=== PATIENT | female | born 1965 | race Caucasian/White ===

== ENCOUNTER 2017-08-29 07:34 | Day surgery (SDC) | payer BC ==
[~2017-08-29 07:34] MED LIST: Dexamethasone 4 MG/ML SDV ONE; Lactated Ringers 1,000 ML ONE; Lidocaine 1% 4 ML ONE; Lidocaine 1%/Sod Bicarbonate in NS 8.4% 1 ML Syringe IV PRN; Midazolam 1 MG/ML 2 ML SDV ONE; Ondansetron 4 MG/2 ML SDV ONE; Propofol 200 MG/20 ML SDV ONE; Rocuronium 50 MG/5 ML Vial ONE; Sodium Chloride 0.9% 10 ML Syringe FLUSH PRN; ceFAZolin 1 GM Vial ONE; fentaNYL 250 MCG/5 ML SDV ONE
[2017-08-29] MEDS ORDERED: Bupivacaine 0.5% 30 ML SDV ONE (07:57)
[2017-08-29] MEDS: Lactated Ringers 1,000 ML IV SCH ×2 (08:00→11:47)
--- NOTE | 2017-08-29 08:48 | PCM.HPR ---
H & P Addendum review - H & P Addendum Review Date of Original H & P: 08/27/17 Date Reviewed: 08/29/17 Time Reviewed: 08:35 Patient was Examined: No Changes
--- NOTE | 2017-08-29 09:43 | PCM.PREANE ---
Preanesthetic Assessment - Anesthesia/Transfusion/Family Hx Anesthesia History: Prior Anesthesia Without Reaction Family History of Anesthesia Reaction: No Intubation History: Unknown - Review of Systems General: No Symptoms Pulmonary: No Symptoms (Currently smoking less than 1ppd.) Cardiovascular: No Symptoms Gastrointestinal: Abdominal Pain Neurological: No Symptoms Other: Reports: Depression - Physical Assessment NPO Status Date: 08/28/17 NPO Status Time: 20:00 O2 Sat by Pulse Oximetry: 96 Respiratory Rate: 16 Vital Signs: Last Vital Signs Temp 36.6 C 08/29/17 07:40 Pulse 83 08/29/17 07:40 Resp 16 08/29/17 07:40 BP 109/68 08/29/17 07:40 Pulse Ox 96 08/29/17 07:40 Height: 1.57 m Weight: 61.235 kg ASA Class: 2 Mental Status: Alert & Oriented x3 Airway Class: Mallampati = 1 Dentition: Reports: Dentures (Partial Dentures removed at home. ) Thyro-Mental Finger Breadths: 3 Mouth Opening Finger Breadths: 3 ROM/Head Extension: Full Lungs: Clear to Auscultation, Normal Respiratory Effort Cardiovascular: Regular Rate, Regular Rhythm - Lab Values: Laboratory Last Values WBC 7.99 K/mm3 (3.98-10.04) 08/29/17 08:15 RBC 4.39 M/mm3 (3.98-5.22) 08/29/17 08:15 Hgb 14.0 gm/L (11.2-15.7) 08/29/17 08:15 Hct 41.3 % (34.1-44.9) 08/29/17 08:15 MCV 94.1 fl (79.4-94.8) 08/29/17 08:15 MCH 31.9 pg (25.6-32.2) 08/29/17 08:15 MCHC 33.9 g/dl (32.2-35.5) 08/29/17 08:15 RDW Std Deviation 44.5 fL (36.4-46.3) 08/29/17 08:15 Plt Count 309 K/mm3 (182-369) 08/29/17 08:15 MPV 10.0 fl (9.4-12.3) 08/29/17 08:15 Neut % (Auto) 57.9 % (34.0-71.1) 08/29/17 08:15 Lymph % (Auto) 29.3 % (19.3-51.7) 08/29/17 08:15 Stokes % (Auto) 7.6 % (4.7-12.5) 08/29/17 08:15 Eos % (Auto) 4.6 (0.7-5.8) 08/29/17 08:15 Baso % (Auto) 0.5 % (0.1-1.2) 08/29/17 08:15 Neut # (Auto) 4.62 K/mm3 (1.56-6.13) 08/29/17 08:15 Lymph # (Auto) 2.34 K/mm3 (1.18-3.74) 08/29/17 08:15 Stokes # (Auto) 0.61 K/mm3 (0.24-0.36) H 08/29/17 08:15 Eos # (Auto) 0.37 K/mm3 (0.04-0.36) H 08/29/17 08:15 Baso # (Auto) 0.04 K/mm3 (0.01-0.08) 08/29/17 08:15 Sodium 141 mEq/L (136-145) 08/29/17 08:29 Potassium 4.1 mEq/L (3.5-5.1) 08/29/17 08:29 Chloride 108 mEq/L (98-107) H 08/29/17 08:29 Carbon Dioxide 26 mEq/L (21-32) 08/29/17 08:29 Anion Gap 11.1 (5-15) 08/29/17 08:29 BUN 10 mg/dL (7-18) 08/29/17 08:29 Creatinine 0.8 mg/dL (0.55-1.02) 08/29/17 08:29 Est Cr Clr Drug Dosing 63.58 mL/min 08/29/17 08:29 Estimated GFR (MDRD) > 60 mL/min (>60) 08/29/17 08:29 BUN/Creatinine Ratio 12.5 (14-18) L 08/29/17 08:29 Glucose 93 mg/dL (74-106) 08/29/17 08:29 Calcium 8.4 mg/dL (8.5-10.1) L 08/29/17 08:29 Urine Color Yellow (Yellow) 08/29/17 07:54 Urine Appearance Clear (Clear) 08/29/17 07:54 Urine pH 6.5 (5.0-8.0) 08/29/17 07:54 Ur Specific [place] 1.020 (1.005-1.030) 08/29/17 07:54 Urine Protein Negative (Negative) 08/29/17 07:54 Urine Glucose (UA) Negative (Negative) 08/29/17 07:54 Urine Ketones Negative (Negative) 08/29/17 07:54 Urine Occult Blood Negative (Negative) 08/29/17 07:54 Urine Nitrite Negative (Negative) 08/29/17 07:54 Urine Bilirubin Negative (Negative) 08/29/17 07:54 Urine Urobilinogen 0.2 (0.2-1.0) 08/29/17 07:54 Ur Leukocyte Esterase Negative (Negative) 08/29/17 07:54 Urine RBC 0-5 /hpf (0-5) 08/29/17 07:54 Urine WBC Not seen /hpf (0-5) 08/29/17 07:54 Ur Epithelial Cells 0-5 /hpf (0-5) 08/29/17 07:54 Urine Bacteria Rare /hpf (FEW) 08/29/17 07:54 Urine Mucus Not seen /hpf (FEW) 08/29/17 07:54 Blood Type O POSITIVE 08/29/17 08:15 Gel Antibody Screen Negative 08/29/17 08:15 - Imaging/EKG Impressions: Reviewed. - Allergies Allergies/Adverse Reactions: Allergies Allergy/AdvReac Type Severity Reaction Status Date / Time No Known Allergies Allergy Verified 08/29/17 08:30 - Acknowledgements Anesthesia Type Planned: General Anesthesia Pt an Appropriate Candidate for the Planned Anesthesia: Yes Alternatives and Risks of Anesthesia Discussed w Pt/Guardian: Yes Pt/Guardian Understands and Agrees with Anesthesia Plan: Yes PreAnesthesia Questionnaire HEENT History: Reports: None Cardiovascular History: Reports: None Respiratory History: Reports: None Gastrointestinal History: Reports: Chronic Constipation Genitourinary History: Reports: Other (See Below) Other Genitourinary History: enterocele, rectocele, pelvic pressure STATISTICS MANAGER History: Reports: Other (See Below) Other OB/BYN History: dyspareunia, A&P repair, vaginal prolapse, bladder sling placed and removed Musculoskeletal History: Reports: None Neurological History: Reports: None Psychiatric History: Reports: Depression Endocrine/Metabolic History: Reports: None Hematologic History: Reports: None Immunologic History: Reports: None Oncologic (Cancer) History: Reports: None Dermatologic History: Reports: None - Past Surgical History Head Surgeries/Procedures: Reports: None HEENT Surgical History: Reports: None Cardiovascular Surgical History: Reports: None Respiratory Surgical History: Reports: None GI Surgical History: Reports: Colonoscopy, Hernia, Inguinal Female Surgical History: Reports: D&C, Hysterectomy Male Surgical History: Reports: None Endocrine Surgical History: Reports: None Neurological Surgical History: Reports: None Musculoskeletal Surgical History: Reports: None Oncologic Surgical History: Reports: None Dermatological Surgical History: Reports: None - SUBSTANCE USE Smoking Status *Q: Current Some Day Smoker Recreational Drug Use History: No - HOME MEDS Home Medications: Home Meds Escitalopram Oxalate [Escitalopram Oxalate] 10 mg PO DAILY 08/27/17 [History] Gabapentin [Neurontin] 200 mg PO BID 08/27/17 [History] LORazepam [LORazepam] 0.5 mg PO DAILY 08/27/17 [History] - CURRENT (IN HOUSE) MEDS Current Meds: Current Medications Lactated Ringer's (Ringers, Lactated) 1,000 mls @ 125 mls/hr IV ASDIRECTED JARRED Last Admin: 08/29/17 08:00 Dose: 125 mls/hr Lidocaine/Sodium Bicarbonate (Buffered Lidocaine 1% In Ns 8.4%) 0.25 ml IV ONETIME PRN PRN Reason: Prior to IV Start Last Admin: 08/29/17 08:00 Dose: 0.25 ml Sodium Chloride (Saline Flush) 10 ml FLUSH ASDIRECTED PRN PRN Reason: Keep Vein Open Discontinued Medications Bupivacaine HCl (Marcaine 0.5%) Confirm Administered Dose 30 ml .ROUTE .STK-MED ONE Stop: 08/29/17 07:58 Cefazolin Sodium (Ancef) Confirm Administered Dose 2 gm .ROUTE .STK-MED ONE Stop: 08/29/17 07:07 Dexamethasone (Dexamethasone) Confirm Administered Dose 4 mg .ROUTE .STK-MED ONE Stop: 08/29/17 07:07 Fentanyl (Sublimaze) Confirm Administered Dose 250 mcg .ROUTE .STK-MED ONE Stop: 08/29/17 07:08 Lactated Ringer's (Ringers, Lactated) Confirm Administered Dose 1,000 mls @ as directed .ROUTE .ST-MED ONE Stop: 08/29/17 07:07 Lidocaine HCl (Xylocaine-Mpf 1%) Confirm Administered Dose 4 mls @ as directed .ROUTE .ST-MED ONE Stop: 08/29/17 07:08 Lidocaine/Epinephrine (Xylocaine 1% With Epinephrine 1:100,000) Confirm Administered Dose 20 ml .ROUTE .ST-MED ONE Stop: 08/29/17 07:58 Midazolam HCl (Versed 1 Mg/Ml) Confirm Administered Dose 2 mg .ROUTE .ST-MED ONE Stop: 08/29/17 07:08 Ondansetron HCl (Zofran) Confirm Administered Dose 4 mg .ROUTE .ST-MED ONE Stop: 08/29/17 07:07 Propofol (Diprivan 20 Ml) Confirm Administered Dose 400 mg .ROUTE .ST-MED ONE Stop: 08/29/17 07:07 Rocuronium [place] (Zemuron) Confirm Administered Dose 50 mg .ROUTE .ST-MED ONE Stop: 08/29/17 07:07 Sodium Chloride (Normal Saline) Confirm Administered Dose 50 ml .ROUTE .[facility]-MED ONE Stop: 08/29/17 07:58
[2017-08-29] MEDS ORDERED: Haloperidol Lactate 5 MG/ML SDV IVPUSH ONE (09:44)
[2017-08-29] MEDS ORDERED: HYDROmorphone 0.5 MG/0.5 ML Syringe IVPUSH PRN (09:44)
[2017-08-29] MEDS ORDERED: Lidocaine 1%/Sod Bicarbonate in NS 8.4% 1 ML Syringe PRN (09:53)
[2017-08-29] MEDS ORDERED: ePHEDrine 50 MG/ML SDV ONE (09:55)
[2017-08-29] MEDS ORDERED: Ketorolac 30 MG/ML SDV ONE (09:56)
[2017-08-29] MEDS: Lidocaine 1% with EPINEPHrine 1:100,000 20 ML MDV ONE ×2 (10:01→10:15)
[2017-08-29] MEDS: Sodium Chloride 0.9% 50 ML SDV ONE ×2 (10:02→10:15)
[2017-08-29] MEDS ORDERED: HYDROmorphone 1 MG/ML Syringe ONE (10:31)
[2017-08-29] MEDS ORDERED: Neostigmine Methylsulfate 1 MG/ML 5 ML Syringe ONE (11:00)
--- NOTE | 2017-08-29 11:13 | PCM.POSTAN ---
POST ANESTHESIA ASSESSMENT - MENTAL STATUS Mental Status: Alert, Oriented - VITAL SIGNS Pulse Rate: 87 SaO2: 100 Resp Rate: 9 Blood Pressure: 112/68 Temperature: 36.6 C - RESPIRATORY Respiratory Status: Respiratory Rate WNL, Airway Patent, O2 Saturation Stable, Supplemental Oxygen - CARDIOVASCULAR CV Status: Pulse Rate WNL, Blood Pressure Stable - GASTROINTESTINAL GI Status: No Symptoms - PAIN Pain Score: 0 - POST OP HYDRATION Hydration Status: Adequate & Stable
[2017-08-29] MEDS: fentaNYL 100 MCG/2 ML SDV IVPUSH PRN ×2 (11:16→11:33)
--- NOTE | 2017-08-29 11:21 | PCM.OPNOTE ---
- General Post-Op/Procedure Note Date of Surgery/Procedure: 08/29/17 Operative Procedure(s): Laparoscopy with lysis of adhesions and right salpingo- oophorectomy, anterior and posterior repair Findings: Normal appearing liver and upper abdomen, lower pelvis with adhesions of omentum to anterior pelvis wall, remnant of ovary and adnexal structures at pelvic brim on the right side, right fallopian tube and ovary present at the pelvic inlet, otherwise normal-appearing pelvis Pre Op Diagnosis: Cystocele with rectocele, dyspareunia in female, change in bowel movements, acute constipation, pelvic pain in female Post-Op Diagnosis: Same Anesthesia Technique: General ET Tube Primary Surgeon: Darwin Will Secondary Surgeon: Kaushal Hartley Anesthesia Provider: Suki Gonzalez Reason Mgmt Consultant Was Necessary: Laparoscopy trained orthotics assistant and patient safety Role of Mgmt Consultant: Mgmt Consultant with laparoscopy and components, assist with vaginal surgery Pathology: Right pelvic brim peritoneum, right fallopian tube and ovary Fluid Replacement, Intraop: 1,800 Output, Urine Amount: 400 EBL in mLs: 100 Complications: None Condition: Good Free Text/Narrative:: Procedure in detail: Patient was seen in the preoperative holding area and discussed plans for surgery. Consents were reviewed and patient desires to proceed with diagnostic laparoscopy, lysis of adhesions, anterior and posterior repair of the vagina. The patient was taken back to the operating room and given general anesthesia with endotracheal tube that was placed without difficulty. She was placed in dorsal lithotomy position using yellowfin stirrups. She was prepped and draped in normal sterile fashion. A timeout was held to confirm the correct patient, correct procedure and correct site. Attention was turned to the patient's abdomen and local anesthetic of 1% lidocaine was injected infraumbilically. A 5-mm incision was made with the scalpel. A Veress needle was inserted through the infraumbilical incision. The gas was turned on. The opening pressure was noted to be 8 mmHg. A pneumoperitoneum was made until 15 mmHg were noted. A 5-mm trocar was inserted under direct visualization of the laparoscope. Attention was turned to the left lower quadrant, where local anesthetic was injected approximately senior living between the ASIS and the umbilicus. A 5-mm incision was made with the scalpel. A 5-mm trocar was inserted under direct visualization with the laparoscope. The suprapubic area was then injected with local anesthetic approximately 2 cm above the pubic symphysis in the midline and a scalpel was used to make a 5 mm incision. A 5-mm trocar was inserted under direct visualization. The pelvis was then inspected and there was noted to be adhesions of the omentum and bowel to the anterior pelvis. There was noted to be ovarian remnants on the right side of the pelvis at the pelvic brim and ovary with remnant fallopian tube at the right pelvic inlet. Attention was then turned to the right lower quadrant and local anesthetic was injected subcutaneously approximately senior living between the right side ASIS and the umbilicus, and a 5-mm incision was made using the scalpel. A 5-mm trocar was inserted under direct visualization with the laparoscope. Attention was then turned to the pelvis, where the ovarian remnant tissue that was previously seen at the right pelvic brim was excised using a Harmonic scalpel. This was sent for pathology. The right ovary and fallopian tube was then grasped and excised using the Harmonic scalpel. Hemostasis was present from the surgical bed. The suprapubic port was extended to a 10 mm incision and a 10 mm trocar was inserted into the abdomen under direct visualization. An Endocatch bag was inserted into the pelvis and was used to remove the right ovary and fallopian tube. In the low pelvis there was noted to be some adhesions of the omentum and bowel to the anterior pelvis. A portion of the adhesions that was distant from the bowel mucosa were taken down using the Harmonic scalpel. The bowel had a significant amount of adhesions along the left side of the pelvis and abdominal sidewall. Attempts were made to try to visualize the left ovary but unable to be seen due to these adhesions. The laparoscopic portion of the case was complete at this time. The gas was removed from the abdomen. The suprapubic port fascia was closed using running suture of 0-Vicryl on a UR-6 needle. The skin incision was closed with 3-0 Monocryl in a running fashion in the suprapubic port. Dermabond skin glue was used over the port sites to close the remaining ports and to cover the skin incision of the suprapubic port. Attention was then turned to the pelvis for the anterior and posterior repair. There was noted to be a grade 2 cystocele and rectocele. The vaginal mucosa overlying the bladder was grasped using Allis clamps and was injected using 1% lidocaine with epinephrine. The mucosa was then excised in a triangular fashion using a scalpel and Metzenbaum scissors. On the lateral sides of the bladder the mucosa was undermined using Metzenbaum scissors. The vesicovaginal fascia was then reapproximated using 0-Monocryl suture with box sutures. The edges of the vaginal mucosa was trimmed further using Metzenbaum sutures. The incision was closed using 3-0 Monocryl sutures in a running locked fashion. The rectal vaginal mucosa was then grasped using Allis clamps and injected with 1% lidocaine with epinephrine and this was excised using a scalpel and Metzenbaum scissors. The mucosa was dissected off of the underlying rectum and the rectovaginal fascia was reapproximated using box sutures of 0-Monocryl suture. The incision was then closed using 3-0 Monocryl suture in a running locked fasihion to the hymenal ring and then the remaining portion was closed in running fashion. Vaginal exam had good support of the bladder and rectum. The procedure was complete at this time. The patient tolerated the procedure well. She was taken back to the PACU, where she was observed for appropriate pain control, a voiding trial and ambulation trial. She was given strict postoperative precautions and will follow up in 2 weeks or sooner if there are any problems that arise.
[2017-08-29] MEDS ORDERED: diphenhydrAMINE 50 MG/ML SDV ONE (11:47)
[2017-08-29] MEDS ORDERED: diphenhydrAMINE 50 MG/ML SDV IVPUSH PRN (11:51)
[2017-08-29] MEDS ORDERED: traMADol 50 MG Tab PO SCH (12:45)
[2017-08-29] MEDS ORDERED: Acetaminophen/oxyCODONE 325-5 MG Tab PO ONE (12:55)
--- NOTE | 2017-08-29 15:08 | PCM48HPAN ---
Post Anesthesia Note - EVALUATION WITHIN 48HRS OF ANESTHETIC Vital Signs in Normal Range: Yes Patient Participated in Evaluation: Yes Respiratory Function Stable: Yes Airway Patent: Yes Cardiovascular Function Stable: Yes Hydration Status Stable: Yes Pain Control Satisfactory: Yes Nausea and Vomiting Control Satisfactory: Yes Mental Status Recovered: Yes
== END 2017-08-29 13:55 | disposition home or self-care (01) ==
LOC: JD.SDS 07:34
PROVIDERS: ATTEND Obstetrics & Gynecology
DX: N83.331 Acquired atrophy of right ovary and fallopian tube (principal); N81.10 Cystocele, unspecified; N81.6 Rectocele; F32.9 Major depressive disorder, single episode, unspecified; Z79.899 Other long term (current) drug therapy; Z98.890 Other specified postprocedural states; Z87.891 Personal history of nicotine dependence
CPT/HCPCS: 36415; 57260; 58661; 80048; 81001; 85025; 86850; 86900; 86901; 87086; 93005; A9270; J0690; J1100; J1170; J1200; J1885; J2250; J2405; J2710; J3010; J7120; 00840; J2704

== ENCOUNTER 2018-07-10 10:02 | Emergency (ER) | payer BC ==
[2018-07-10] MEDS ORDERED: Ondansetron 4 MG/2 ML SDV IVPUSH ONE (11:02)
[2018-07-10] MEDS ORDERED: HYDROmorphone 0.5 MG/0.5 ML SYRINGE IVPUSH STA (11:04)
[2018-07-10] MEDS ORDERED: Sodium Chloride 0.9% 10 ML Syringe FLUSH PRN (11:12)
[2018-07-10] MEDS ORDERED: Diatrizoate Meglumine/Diatrizoate Sodium 37% 120 ML Bottle PO ONE (11:12)
[2018-07-10] MEDS ORDERED: Iopamidol 612 MG/ML 100 ML Bottle IVPUSH ONE (11:12)
[2018-07-10] MEDS ORDERED: Sodium Chloride 0.9% 1,000 ML IV SCH (11:15)
[2018-07-10] MEDS ORDERED: Sulfamethoxazole/Trimethoprim 800-160 MG Tab PO ONE (11:47)
--- NOTE | 2018-07-10 11:48 | EDM.PDOC ---
ED HPI GENERAL MEDICAL PROBLEM - General Chief Complaint: Abdominal Pain Stated Complaint: LOWER ABDOMINAL PAIN Time Seen by Provider: 07/10/18 10:42 Source of Information: Reports: Patient, RN Notes Reviewed History Limitations: Reports: No Limitations - History of Present Illness INITIAL COMMENTS - FREE TEXT/NARRATIVE: The patient states that she developed nausea and vomiting this past 07/08/2018. Shortly afterwards, she developed right sided abdominal pain. Is sharp and burning in character. It does not radiate. It comes and goes, and the patient has not identified any modifiers. She denies having any diarrhea or urinary symptoms. No recent fever. No prior similar symptoms. The patient denies eating a bad or spoiled food within the last week. Not of her close contacts are similarly ill. No recent antibiotics. No recent travel. The patient's PCP is Dr. Rhea Kinney. 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: Reports: Other (See Below) Musculoskeletal History: Reports: Other (See Below) (Lumbar disc disease) Psychiatric History: Reports: Depression - Past Surgical History HEENT Surgical History: Reports: Oral Surgery (wisdom teeth extraction) GI Surgical History: Reports: Colonoscopy, EGD, Hernia, Inguinal (right, with revision) Female Surgical History: Reports: D&C, Hysterectomy, Lithotripsy/ESWL, Oophorectomy (bilateral), Ureteral Stent, Other (See Below) (Rectocele, cystocele, bladder sling) Social & Family History - Tobacco Use Smoking Status *Q: Former Smoker Years of Tobacco use: 37 Packs/Tins Daily: 0.4 Month/Year Tobacco Last Used: Quit 2016 - Caffeine Use Caffeine Use: Reports: Coffee - Alcohol Use Alcohol Use History: Yes Alcohol Use Frequency: Rarely - Recreational Drug Use Recreational Drug Use: No - Living Situation & Occupation Living situation: Reports: , with Spouse 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 ED EXAM, GI/ABD - Physical Exam Exam: See Below Exam Limited By: No Limitations General Appearance: Alert, WD/WN, No Apparent Distress Eyes: Bilateral: Normal Appearance, EOMI Ears: Normal External Exam, Hearing Grossly Normal Nose: Normal Inspection Throat/Mouth: Normal Inspection, Normal Lips, Normal Voice, No Airway Compromise Head: Atraumatic, Normocephalic Neck: Normal Inspection, Full Range of Motion Respiratory/Chest: No Respiratory Distress, Lungs Clear, Normal Breath Sounds, No Accessory Muscle Use Cardiovascular: Normal Peripheral Pulses, Regular Rate, Rhythm, No Edema, No Gallop, No JVD, No Murmur, No Rub GI/Abdominal Exam: Normal Bowel Sounds, Soft, No Organomegaly, No Distention, No Abnormal Bruit, No Mass, Tender (Entire right abdomen, particularly the mid- right abdomen. Nontender to the left abdomen, and Rovsing sign negative.). No: Rebound (Female) Exam: Deferred Rectal (Female) Exam: Deferred Back Exam: Normal Inspection, Full Range of Motion. No: CVA Tenderness (L), CVA Tenderness (R) Extremities: Normal Inspection, Normal Range of Motion, No Pedal Edema, Normal Capillary Refill Neurological: Alert, Oriented, Normal Cognition, No Motor/Sensory Deficits Psychiatric: Normal Affect Skin Exam: Warm, Dry, Intact, Normal Color, No Rash Course - Vital Signs Last Recorded V/S: Last Vital Signs Temp 37.0 C 07/10/18 10:19 Pulse 98 07/10/18 10:19 Resp 19 07/10/18 10:19 BP 120/89 07/10/18 10:19 Pulse Ox 98 07/10/18 10:19 - Orders/Labs/Meds Orders: Active Orders 24 hr Category Date Time Status CULTURE URINE [RM] Stat Lab 07/10/18 10:30 Received Sodium Chloride 0.9% [Normal Saline] 1,000 ml Med 07/10/18 11:15 Active IV ASDIRECTED Sodium Chloride 0.9% [Saline Flush] Med 07/10/18 11:12 Active 10 ml FLUSH ONETIME PRN Medication Orders Sodium Chloride (Normal Saline) 1,000 mls @ 150 mls/hr IV ASDIRECTED JARRED Last Admin: 07/10/18 11:17 Dose: 150 mls/hr Sodium Chloride (Saline Flush) 10 ml FLUSH ONETIME PRN PRN Reason: IV FLUSH Last Admin: 07/10/18 11:51 Dose: 10 ml Labs: Laboratory Tests 07/10/18 07/10/18 07/10/18 Range/Units 10:30 11:20 11:20 WBC 10.65 H (3.98-10.04) K/mm3 RBC 4.32 (3.98-5.22) M/mm3 Hgb 13.7 (11.2-15.7) gm/L Hct 41.4 (34.1-44.9) % MCV 95.8 H (79.4-94.8) fl MCH 31.7 (25.6-32.2) pg MCHC 33.1 (32.2-35.5) g/dl RDW Std Deviation 44.1 (36.4-46.3) fL Plt Count 329 (182-369) K/mm3 MPV 10.3 (9.4-12.3) fl Neutrophils % (Manual) 71 H (40-60) % Band Neutrophils % 0 (0-10) % Lymphocytes % (Manual) 22 (20-40) % Atypical Lymphs % 0 % Monocytes % (Manual) 3 (2-10) % Eosinophils % (Manual) 4 (0.7-5.8) % Basophils % (Manual) 0 L (0.1-1.2) Platelet Estimate Adequate RBC Morph Comment Normal Sodium 139 (136-145) mEq/L Potassium 3.8 (3.5-5.1) mEq/L Chloride 104 (98-107) mEq/L Carbon Dioxide 26 (21-32) mEq/L Anion Gap 12.8 (5-15) BUN 7 (7-18) mg/dL Creatinine 0.8 (0.55-1.02) mg/dL Est Cr Clr Drug Dosing 63.58 mL/min Estimated GFR (MDRD) > 60 (>60) mL/min BUN/Creatinine Ratio 8.8 L (14-18) Glucose 93 (74-106) mg/dL Calcium 8.9 (8.5-10.1) mg/dL Total Bilirubin 0.2 (0.2-1.0) mg/dL AST 16 (15-37) U/L ALT 18 (14-59) U/L Alkaline Phosphatase 76 (46-116) U/L Total Protein 7.3 (6.4-8.2) g/dl Albumin 3.7 (3.4-5.0) g/dl Globulin 3.6 gm/dL Albumin/Globulin Ratio 1.0 (1-2) Lipase 152 (73-393) U/L Urine Color Yellow (Yellow) Urine Appearance Clear (Clear) Urine pH 7.0 (5.0-8.0) Ur Specific Hanna 1.015 (1.005-1.030) Urine Protein Negative (Negative) Urine Glucose (UA) Negative (Negative) Urine Ketones Negative (Negative) Urine Occult Blood Negative (Negative) Urine Nitrite Negative (Negative) Urine Bilirubin Negative (Negative) Urine Urobilinogen 0.2 (0.2-1.0) Ur Leukocyte Esterase 1+ H (Negative) Urine RBC 0-5 (0-5) /hpf Urine WBC 5-10 H (0-5) /hpf Ur Epithelial Cells 0-5 (0-5) /hpf Urine Bacteria Many H (FEW) /hpf Urine Mucus Not seen (FEW) /hpf Meds: Medications Generic Name Dose Route Start Last Admin Trade Name Cole PRN Reason Stop Dose Admin Sodium Chloride 1,000 mls @ 150 mls/hr 07/10/18 11:15 07/10/18 11:17 Normal Saline IV 150 mls/hr ASDIRECTED JARRED Administration Sodium Chloride 10 ml 07/10/18 11:12 07/10/18 11:51 Saline Flush FLUSH 10 ml ONETIME PRN Administration IV FLUSH Discontinued Medications Generic Name Dose Route Start Last Admin Trade Name Freq PRN Reason Stop Dose Admin Diatrizoate Meglum/Diatrizoate Sod 120 ml 07/10/18 11:12 07/10/18 11:51 Gastrografin 37% PO 07/10/18 11:13 90 ml ONETIME ONE Administration Hydromorphone HCl 1 mg 07/10/18 11:04 07/10/18 11:18 Dilaudid IVPUSH 07/10/18 11:05 1 mg ONETIME STA Administration Iopamidol 100 ml 07/10/18 11:12 07/10/18 11:50 Isovue-300 (61%) IVPUSH 07/10/18 11:13 100 ml ONETIME ONE Administration Ondansetron HCl 4 mg 07/10/18 11:02 07/10/18 11:18 Zofran IVPUSH 07/10/18 11:03 4 mg ONETIME ONE Administration Trimethoprim/Sulfamethoxazole 1 tab 07/10/18 11:47 Septra Ds PO 07/10/18 11:48 ONETIME ONE - Re-Assessments/Exams Free Text/Narrative Re-Assessment/Exam: 07/10/18 11:47 The patient's urinalysis is remarkable for 1+ leukocyte esterase, 5-10 WBCs, and many bacteria. This is consistent with a UTI. A urine culture has been ordered, and I will start the patient on oral Bactrim. 07/10/18 12:41 CT of the abdomen and pelvis with oral and IV contrast is read by Dr. Boss as: 1. Small hiatal hernia with mild gastroesophageal reflux. 2. Other incidental findings. Nothing acute is seen. 07/10/18 13:10 Test results discussed with the patient. Other than the possible urinary tract infection, for which the patient is are been started on Bactrim, the remainder of her workup was unremarkable, and does not explain her right-sided pain. I will prescribe 3 day course of Bactrim, and I would like the patient to follow- up with her PCP, Dr. Kinney, this coming week. If her symptoms worsen, I would like her to return to the ED for reevaluation. Departure - Departure Time of Disposition: 13:10 Disposition: Home, Self-Care 01 Condition: Good Clinical Impression: Abdominal pain of unknown etiology, UTI (urinary tract infection) - Discharge Information *PRESCRIPTION DRUG MONITORING PROGRAM REVIEWED*: Not Applicable *COPY OF PRESCRIPTION DRUG MONITORING REPORT IN PATIENT LYNDSAY: Not Applicable Referrals: Rhea Kinney MD [Primary Care Provider] - Forms: ED Department Discharge, ED Return to Work/School Form Additional Instructions: You were seen in the emergency room for right-sided abdominal pain, along with nausea and vomiting. Workup in the ER included blood work, a urinalysis, and a CT scan of your abdomen and pelvis with oral and IV contrast. Your urinalysis indicates that you might have a urinary tract infection. A sample of your urine has been sent for culture. You have been started on the antibiotic Bactrim. A prescription for Bactrim has been sent to the [facility], [address]. Take one tablet every 12 hours, starting this evening, 07/10/2018, as prescribed. Finish the entire prescription unless told otherwise by a doctor. Stay adequately hydrated, so that you urinate fairly often. It does not really matter what fluid you drink. The remainder of your workup was unremarkable, and does not explain your right- sided abdominal pain and tenderness. We recommend that you follow-up with your PCP, Dr. Rhea Kinney, early this coming week, however, if your symptoms worsen, we recommend that you return to the ER for reevaluation. - My Orders Last 24 Hours: My Active Orders 07/10/18 10:30 CULTURE URINE [RM] Stat 07/10/18 11:12 Sodium Chloride 0.9% [Saline Flush] 10 ml FLUSH ONETIME PRN 07/10/18 11:15 Sodium Chloride 0.9% [Normal Saline] 1,000 ml IV ASDIRECTED - Assessment/Plan Last 24 Hours: My Active Orders 07/10/18 10:30 CULTURE URINE [RM] Stat 07/10/18 11:12 Sodium Chloride 0.9% [Saline Flush] 10 ml FLUSH ONETIME PRN 07/10/18 11:15 Sodium Chloride 0.9% [Normal Saline] 1,000 ml IV ASDIRECTED
--- NOTE | 2018-07-10 12:22 | CT ---
CT abdomen and pelvis Technique: Multiple axial sections were obtained from above the dome of the diaphragm inferiorly through the pubic symphysis. Intravenous and oral contrast is present. Oral contrast remains within the stomach. Delayed images were obtained through the bladder. Comparison: No prior abdominal CT study. Findings: Visualized lung bases show nothing acute. Small hiatal hernia is seen. Mild gastroesophageal reflux is seen into the esophagus. Liver shows no focal parenchymal abnormality. Spleen appears within normal limits. Adrenal glands show no nodule. Pancreas appears within normal limits. Aorta shows no aneurysm. No retroperitoneal adenopathy is seen. Appendix is seen which is normal in size. No pelvic mass or adenopathy is seen. No free fluid or inflammatory change is seen. No bowel dilatation is seen. Gallbladder shows no calcified gallstones. Bone window settings were reviewed which shows severe disc space narrowing at L5-S1 with vacuum phenomena with posterior disc bulging and posterior spurring. Lesser degenerative change is seen within the thoracic spine. Impression: 1. Small hiatal hernia with mild gastroesophageal reflux. 2. Other incidental findings. Nothing acute is seen. Diagnostic code #2
== END 2018-07-10 13:34 | disposition home or self-care (01) ==
LOC: JD.ED 10:02
DX: N39.0 Urinary tract infection, site not specified (principal); Z79.899 Other long term (current) drug therapy; Z87.891 Personal history of nicotine dependence
CPT/HCPCS: 36415; 74177; 80053; 81001; 83690; 85007; 85027; 87086; 87088; 87184; 96361; 96374; 96375; 99284; A9270; J1170; J2405; J7040; J7050; Q9963; Q9967

== ENCOUNTER 2020-06-02 09:55 | Emergency (ER) | payer BC ==
[2020-06-02] MEDS ORDERED: Dexamethasone 10 MG/ML SDV IM ONE (11:10)
--- NOTE | 2020-06-02 11:17 | EDM.PDOC ---
ED HPI GENERAL MEDICAL PROBLEM - General Chief Complaint: Back Pain or Injury Stated Complaint: BACK PAIN Time Seen by Provider: 06/02/20 10:57 Source of Information: Reports: Patient, RN Notes Reviewed History Limitations: Reports: No Limitations - History of Present Illness INITIAL COMMENTS - FREE TEXT/NARRATIVE: Patient is a 54-year-old female who presents to the ED for evaluation of her ongoing back pain. Patient notes she has degenerative disc disease in her back, and she cannot remember any specific trauma or movements that she had made to make the back pain worse. She does note that this is been going on for about 4 days. She was seen in the walk-in clinic on Friday, May 31, given an injection of Toradol, some p.o. prednisone 40 mg daily x5 days-, and Flexeril for management, she also had an x-ray taken. The providers are told that she needed an MRI and she should follow-up with her regular provider Paulette Luis for this. Patient notes she has been trying to get a hold of Paulette, but she is been out of the office and not taking appointments at this time. She notes that the pain is still radiating down her right leg, and feels like there is [id number]. She states is very difficult to get out of bed this morning due to the pain. Otherwise she denies any sick-like symptoms, fever/chills, cough/shortness of breath, or any other issues. - Related Data Allergies Allergy/AdvReac Type Severity Reaction Status Date / Time tramadol Allergy Severe Difficulty Verified 06/02/20 10:14 Breathing Home Meds: Home Meds Cyclobenzaprine [Flexeril] 5 mg PO DAILY PRN 06/02/20 [History] LORazepam [Ativan] 0.5 mg PO DAILY PRN 06/02/20 [History] Rosuvastatin Calcium [Crestor] 40 mg PO DAILY 06/02/20 [History] predniSONE [Prednisone] 40 mg PO ASDIRECTED 06/02/20 [History] Past Medical History Cardiovascular History: Reports: High Cholesterol Gastrointestinal History: Reports: PUD Genitourinary History: Reports: Renal Calculus Other Genitourinary History: enterocele, rectocele, pelvic pressure BUYER GRAIN History: Reports: Other (See Below) Other BUYER GRAIN History: dyspareunia, A&P repair, vaginal prolapse, bladder sling placed and removed Musculoskeletal History: Reports: Other (See Below) Other Musculoskeletal History: Lumbar degenerative disc disease Psychiatric History: Reports: Depression - Past Surgical History HEENT Surgical History: Reports: Oral Surgery GI Surgical History: Reports: Colonoscopy, EGD, Hernia, Inguinal Female Surgical History: Reports: D&C, Hysterectomy, Lithotripsy/ESWL, Oophorectomy, Ureteral Stent, Other (See Below) Social & Family History - Family History Family Medical History: Noncontributory - Tobacco Use Smoking Status *Q: Current Some Day Smoker Years of Tobacco use: 20 Packs/Tins Daily: 0.1 - Caffeine Use Caffeine Use: Reports: Coffee - Living Situation & Occupation Living situation: Reports: , with Spouse 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 ED EXAM,LOWER BACK PAIN/INJURY - Physical Exam Exam: See Below Exam Limited By: No Limitations General Appearance: Alert, WD/WN, No Apparent Distress (patient laying on belly, as this is the position that is most comfortable) Respiratory/Chest: No Respiratory Distress, Lungs Clear, Normal Breath Sounds, No Accessory Muscle Use, Chest Non-Tender Cardiovascular: Normal Peripheral Pulses, Regular Rate, Rhythm, No Murmur GI/Abdominal: Normal Bowel Sounds, Soft, Non-Tender, No Distention, No Mass Extremities: Normal Inspection, Normal Capillary Refill Neurological: Alert, Normal Mood/Affect, Normal Dorsiflexion, CN II-XII Intact, Normal Plantar Flexion, Oriented x 3, Straight Leg Raise (R). No: Straight Leg Raise (L), Saddle Anesthesia Psychiatric: Normal Affect, Normal Mood Skin Exam: Warm, Dry, Intact, Normal Color, No Rash Course - Vital Signs Last Recorded V/S: Last Vital Signs Temp 97.7 F 06/02/20 10:08 Pulse 89 06/02/20 10:08 Resp 16 06/02/20 10:08 BP 107/65 06/02/20 10:08 Pulse Ox 100 06/02/20 10:08 - Orders/Labs/Meds Meds: Medications Discontinued Medications Generic Name Dose Route Start Last Admin Trade Name Freq PRN Reason Stop Dose Admin Dexamethasone 10 mg 06/02/20 11:10 Dexamethasone IM 06/02/20 11:11 ONETIME ONE - Re-Assessments/Exams Free Text/Narrative Re-Assessment/Exam: 06/02/20 11:19 Patient presents the ED for ongoing back pain. I will provided with an order for MRI, I did tell her she will to follow-up with Paulette Luis for results, she is aware of this. She will also get an injection of dexamethasone for further management of her back pain. Departure - Departure Time of Disposition: 11:12 Disposition: Home, Self-Care 01 Condition: Good Clinical Impression: Low back pain radiating down leg - Discharge Information *PRESCRIPTION DRUG MONITORING PROGRAM REVIEWED*: No *COPY OF PRESCRIPTION DRUG MONITORING REPORT IN PATIENT LYNDSAY: No Instructions: Back Exercises, [id number] Referrals: Paulette Luis PA-C [Primary Care Provider] - Forms: ED Department Discharge, ED Return to Work/School Form Additional Instructions: You were evaluated in the ER today for your low back pain. This is most likely sciatica/radiculopathy which is nerve pain. You have been given an injection of dexamethasone for further treatment, this is an intramuscular steroid. Please take all other medications as previously directed by your other providers. You were given an outpatient order for a back MRI, our radiology department call to schedule you for this appointment. You will need to follow-up with Paulette Luis for results. You may schedule this roughly 1 week after you have your MRI so she has some time to review the findings. Please return to the ER at any time if your symptoms change or worsen. Sepsis Event Note (ED) - Evaluation Sepsis Screening Result: No Definite Risk - Focused Exam Vital Signs: Vital Signs Temp Pulse Resp BP Pulse Ox 06/02/20 10:08 97.7 F 89 16 107/65 100
== END 2020-06-02 11:35 | disposition home or self-care (01) ==
LOC: JD.ED 09:55
DX: M54.5 Low back pain (principal); E78.00 Pure hypercholesterolemia, unspecified; F32.9 Major depressive disorder, single episode, unspecified; F17.210 Nicotine dependence, cigarettes, uncomplicated; Z79.899 Other long term (current) drug therapy; Z88.5 Allergy status to narcotic agent
CPT/HCPCS: 96372; 99283; J1100

== ENCOUNTER 2021-07-04 20:44 | Emergency (ER) | payer BC ==
[2021-07-04] MEDS ORDERED: Sodium Chloride 0.9% 10 ML Syringe FLUSH PRN (21:13)
[2021-07-04] MEDS ORDERED: Ondansetron 4 MG/2 ML SDV IVPUSH ONE (21:23)
[2021-07-04] MEDS ORDERED: HYDROmorphone 0.5 MG/0.5 ML Syringe IVPUSH ONE ×2 (21:23→22:38)
[2021-07-04] MEDS ORDERED: Sodium Chloride 0.9% 1,000 ML IV STA (21:23)
[2021-07-04] MEDS ORDERED: Ketorolac 30 MG/ML SDV IVPUSH ONE (21:23)
--- NOTE | 2021-07-04 21:46 | EDM.PDOC ---
<Molly Jimenez - Last Filed: 07/04/21 21:44> ED HPI GENERAL MEDICAL PROBLEM - General Chief Complaint: Flank Pain Stated Complaint: RIGHT SIDE/ABDOMEN/GROIN PAIN Time Seen by Provider: 07/04/21 21:06 Source of Information: Reports: Patient, RN Notes Reviewed History Limitations: Reports: No Limitations - History of Present Illness INITIAL COMMENTS - FREE TEXT/NARRATIVE: Patient is a 55-year-old female presenting to the emergency department with complaints of right-sided flank pain with radiation to her right lateral abdomen and down into her groin. Symptoms began this morning. She was seen at the [facility] and had urine completed. She states it showed trace lysed blood in her urine. She is scheduled for CT scan tomorrow, however the pain became intolerable this evening. She does have a history of kidney stones with her last being approximately 7 years ago. This required stenting and lithotripsy. Denies fever but states she did vomit this evening. She took Tylenol with little relief. She received injection of Toradol in the clinic this morning. Right Flank Pain Score (Numeric/FACES): 8 Right Abdomen Pain Score (Numeric/FACES): 8 - Related Data Allergies Allergy/AdvReac Type Severity Reaction Status Date / Time tramadol Allergy Severe Difficulty Verified 06/05/20 09:27 Breathing, Nausea & Vomiting. Home Meds: Home Meds Cyclobenzaprine [Flexeril] 5 mg PO DAILY PRN 06/02/20 [History] LORazepam [Ativan] 0.5 mg PO DAILY PRN 06/02/20 [History] Rosuvastatin Calcium [Crestor] 40 mg PO DAILY 06/02/20 [History] Albuterol Sulfate [Proair Digihaler] 90 mcg IH ASDIRECTED 06/05/20 [History] Hydrocodone/Acetaminophen [HYDROcodone-Acetaminophen 5-325 MG] 1 each PO Q6HR PRN #14 tab 07/05/21 [Rx] Past Medical History Cardiovascular History: Reports: High Cholesterol Respiratory History: Reports: None Gastrointestinal History: Reports: PUD Genitourinary History: Reports: Renal Calculus Other Genitourinary History: enterocele, rectocele, pelvic pressure TOOL FILER History: Reports: Other (See Below) Other TOOL FILER History: dyspareunia, A&P repair, vaginal prolapse, bladder sling placed and removed Musculoskeletal History: Reports: Other (See Below) Other Musculoskeletal History: Lumbar degenerative disc disease Neurological History: Reports: None Psychiatric History: Reports: Depression Endocrine/Metabolic History: Reports: None Hematologic History: Reports: None Immunologic History: Reports: None Oncologic (Cancer) History: Reports: None Dermatologic History: Reports: None - Infectious Disease History Infectious Disease History: Reports: Chicken Pox, Mumps - Past Surgical History Head Surgeries/Procedures: Reports: None HEENT Surgical History: Reports: Oral Surgery Cardiovascular Surgical History: Reports: None Respiratory Surgical History: Reports: None GI Surgical History: Reports: Colonoscopy, EGD, Hernia, Inguinal Female Surgical History: Reports: D&C, Hysterectomy, Lithotripsy/ESWL, Oophorectomy, Ureteral Stent, Other (See Below) Endocrine Surgical History: Reports: None Neurological Surgical History: Reports: None Musculoskeletal Surgical History: Reports: None Oncologic Surgical History: Reports: None Dermatological Surgical History: Reports: None Social & Family History - Family History Family Medical History: No Pertinent Family History - Tobacco Use Tobacco Use Status *Q: Current Every Day Tobacco User Years of Tobacco use: 35 Packs/Tins Daily: 0.3 - Caffeine Use Caffeine Use: Reports: Coffee, Soda - Recreational Drug Use Recreational Drug Use: No - Living Situation & Occupation Living situation: Reports: , with Spouse 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 Denies: Fever, Chills HEENT: Reports: No Symptoms Respiratory: Reports: No Symptoms Cardiovascular: Reports: No Symptoms Endocrine: Reports: No Symptoms GI/Abdominal: Reports: Nausea, Vomiting. Denies: Abdominal Pain : Reports: Flank Pain Musculoskeletal: Reports: No Symptoms Skin: Reports: No Symptoms Neurological: Reports: No Symptoms Psychiatric: Reports: No Symptoms Hematologic/Lymphatic: Reports: No Symptoms Immunologic: Reports: No Symptoms ED EXAM, RENAL/ - Physical Exam Exam: See Below Exam Limited By: No Limitations General Appearance: Alert, Mild Distress Respiratory/Chest: No Respiratory Distress, Lungs Clear, Normal Breath Sounds, No Accessory Muscle Use, Chest Non-Tender Cardiovascular: Normal Peripheral Pulses, Regular Rate, Rhythm, No Edema, No Gallop, No JVD, No Murmur, No Rub GI/Abdominal: Normal Bowel Sounds, Soft, Non-Tender, No Organomegaly, No Abnormal Bruit, No Mass, Distended (Mildly) Back Exam: Normal Inspection, Full Range of Motion, CVA Tenderness (R). No: CVA Tenderness (L) Neurological: Alert, Oriented, CN II-XII Intact, Normal Cognition, Normal Gait, Normal Reflexes, No Motor/Sensory Deficits Psychiatric: Normal Affect, Normal Mood Skin Exam: Warm, Dry, Intact, Normal Color, No Rash Departure - Departure Disposition: Home, Self-Care 01 Clinical Impression: Kidney stone on right side - Discharge Information Prescriptions: Hydrocodone/Acetaminophen [HYDROcodone-Acetaminophen 5-325 MG] 1 each PO Q6HR PRN #14 tab PRN Reason: Pain Referrals: Paulette Luis PA-C [Primary Care Provider] - Forms: ED Department Discharge Additional Instructions: Strain urine to watch for stone. Drink plenty of fluids. Tylenol for mild to moderate discomfort or hydrocodone if needed for severe pain. Prescription has been sent to [facility]. Follow up clinic if you do not catch a stone in the strainer in a few days and/or if discomfort persisting. Call for appt. Return to ED as needed. <Maxim Parada - Last Filed: 07/05/21 02:03> Course - Vital Signs Last Recorded V/S: Last Vital Signs Temp 98.0 F 07/04/21 21:17 Pulse 96 07/04/21 21:17 Resp 20 07/04/21 21:17 BP 139/83 07/04/21 21:17 Pulse Ox 97 07/04/21 21:17 - Orders/Labs/Meds Orders: Active Orders 24 hr Category Date Time Status Peripheral IV Care [RC] . DIRECTED Care 07/04/21 21:13 Active Abdomen Pelvis wo Cont [CT] Stat Exams 07/04/21 21:23 Taken Sodium Chloride 0.9% [Normal Saline] 1,000 ml Med 07/04/21 21:23 Active IV NOW Sodium Chloride 0.9% [Saline Flush] Med 07/04/21 21:13 Active 10 ml FLUSH ASDIRECTED PRN Peripheral IV Insertion Adult [OM.PC] Stat Oth 07/04/21 21:13 Ordered Medication Orders Sodium Chloride (Normal Saline) 1,000 mls @ 150 mls/hr IV NOW STA Stop: 07/05/21 04:02 Last Admin: 07/04/21 21:38 Dose: 150 mls/hr Documented by: LAURA Sodium Chloride (Sodium Chloride 0.9% 10 Ml Syringe) 10 ml FLUSH ASDIRECTED PRN PRN Reason: Keep Vein Open Last Admin: 07/04/21 21:41 Dose: 10 ml Documented by: LAURA Labs: Laboratory Tests 07/04/21 07/04/21 07/04/21 Range/Units 21:40 21:40 21:40 WBC 9.70 (3.98-10.04) K/mm3 RBC 4.20 (3.98-5.22) M/mm3 Hgb 13.5 (11.2-15.7) gm/dl Hct 40.2 (34.1-44.9) % MCV 95.7 H (79.4-94.8) fl MCH 32.1 (25.6-32.2) pg MCHC 33.6 (32.2-35.5) g/dl RDW Std Deviation 45.0 (36.4-46.3) fL Plt Count 346 (182-369) K/mm3 MPV 10.5 (9.4-12.3) fl Neut % (Auto) 46.7 (34.0-71.1) % Lymph % (Auto) 36.2 (19.3-51.7) % [place] % (Auto) 10.0 (4.7-12.5) % Eos % (Auto) 6.2 H (0.7-5.8) Baso % (Auto) 0.7 (0.1-1.2) % Neut # (Auto) 4.53 (1.56-6.13) K/mm3 Lymph # (Auto) 3.51 (1.18-3.74) K/mm3 [place] # (Auto) 0.97 H (0.24-0.36) K/mm3 Eos # (Auto) 0.60 H (0.04-0.36) K/mm3 Baso # (Auto) 0.07 (0.01-0.08) K/mm3 Sodium 138 (136-145) mEq/L Potassium 3.8 (3.5-5.1) mEq/L Chloride 104 (98-107) mEq/L Carbon Dioxide 27 (21-32) mEq/L Anion Gap 10.8 (5-15) BUN 8 (7-18) mg/dL Creatinine 0.7 (0.55-1.02) mg/dL Est Cr Clr Drug Dosing 70.13 mL/min Estimated GFR (MDRD) > 60 (>60) mL/min BUN/Creatinine Ratio 11.4 L (14-18) Glucose 95 (70-99) mg/dL Calcium 8.6 (8.5-10.1) mg/dL Total Bilirubin 0.2 (0.2-1.0) mg/dL AST 14 L (15-37) U/L ALT 18 (14-59) U/L Alkaline Phosphatase 73 (46-116) U/L C-Reactive Protein (<1.0) mg/dL Total Protein 7.5 (6.4-8.2) g/dl Albumin 3.9 (3.4-5.0) g/dl Globulin 3.6 gm/dL Albumin/Globulin Ratio 1.1 (1-2) Urine Color Light yellow (Yellow) Urine Appearance Clear (Clear) Urine pH 7.0 (5.0-8.0) Ur Specific Cedar 1.020 (1.005-1.030) Urine Protein Negative (Negative) Urine Glucose (UA) Negative (Negative) Urine Ketones Negative (Negative) Urine Occult Blood Negative (Negative) Urine Nitrite Negative (Negative) Urine Bilirubin Negative (Negative) Urine Urobilinogen 0.2 (0.2-1.0) Ur Leukocyte Esterase Negative (Negative) Urine RBC 0-5 (0-5) /hpf Urine WBC 0-5 (0-5) /hpf Ur Squamous Epith Cells 0-5 (0-5) /hpf Urine Bacteria Occasional (FEW) /hpf Urine Mucus Not seen (FEW) /hpf 07/04/21 Range/Units 21:40 WBC (3.98-10.04) K/mm3 RBC (3.98-5.22) M/mm3 Hgb (11.2-15.7) gm/dl Hct (34.1-44.9) % MCV (79.4-94.8) fl MCH (25.6-32.2) pg MCHC (32.2-35.5) g/dl RDW Std Deviation (36.4-46.3) fL Plt Count (182-369) K/mm3 MPV (9.4-12.3) fl Neut % (Auto) (34.0-71.1) % Lymph % (Auto) (19.3-51.7) % [place] % (Auto) (4.7-12.5) % Eos % (Auto) (0.7-5.8) Baso % (Auto) (0.1-1.2) % Neut # (Auto) (1.56-6.13) K/mm3 Lymph # (Auto) (1.18-3.74) K/mm3 [place] # (Auto) (0.24-0.36) K/mm3 Eos # (Auto) (0.04-0.36) K/mm3 Baso # (Auto) (0.01-0.08) K/mm3 Sodium (136-145) mEq/L Potassium (3.5-5.1) mEq/L Chloride (98-107) mEq/L Carbon Dioxide (21-32) mEq/L Anion Gap (5-15) BUN (7-18) mg/dL Creatinine (0.55-1.02) mg/dL Est Cr Clr Drug Dosing mL/min Estimated GFR (MDRD) (>60) mL/min BUN/Creatinine Ratio (14-18) Glucose (70-99) mg/dL Calcium (8.5-10.1) mg/dL Total Bilirubin (0.2-1.0) mg/dL AST (15-37) U/L ALT (14-59) U/L Alkaline Phosphatase (46-116) U/L C-Reactive Protein <0.2 (<1.0) mg/dL Total Protein (6.4-8.2) g/dl Albumin (3.4-5.0) g/dl Globulin gm/dL Albumin/Globulin Ratio (1-2) Urine Color (Yellow) Urine Appearance (Clear) Urine pH (5.0-8.0) Ur Specific Cedar (1.005-1.030) Urine Protein (Negative) Urine Glucose (UA) (Negative) Urine Ketones (Negative) Urine Occult Blood (Negative) Urine Nitrite (Negative) Urine Bilirubin (Negative) Urine Urobilinogen (0.2-1.0) Ur Leukocyte Esterase (Negative) Urine RBC (0-5) /hpf Urine WBC (0-5) /hpf Ur Squamous Epith Cells (0-5) /hpf Urine Bacteria (FEW) /hpf Urine Mucus (FEW) /hpf Meds: Medications Generic Name Dose Route Start Last Admin Trade Name Cole PRN Reason Stop Dose Admin Sodium Chloride 1,000 mls @ 150 mls/hr 07/04/21 21:23 07/04/21 21:38 Normal Saline IV 07/05/21 04:02 150 mls/hr NOW STA Administration Sodium Chloride 10 ml 07/04/21 21:13 07/04/21 21:41 Sodium Chloride 0.9% 10 Ml Syringe FLUSH 10 ml ASDIRECTED PRN Administration Keep Vein Open Discontinued Medications Generic Name Dose Route Start Last Admin Trade Name Cole PRN Reason Stop Dose Admin Hydromorphone HCl 0.5 mg 07/04/21 21:23 07/04/21 21:39 Hydromorphone 0.5 Mg/0.5 Ml Syringe IVPUSH 07/04/21 21:24 0.5 mg ONETIME ONE Administration Hydromorphone HCl 0.5 mg 07/04/21 22:38 07/04/21 22:55 Hydromorphone 0.5 Mg/0.5 Ml Syringe IVPUSH 07/04/21 22:39 0.5 mg ONETIME ONE Administration Ketorolac Tromethamine 30 mg 07/04/21 21:23 07/04/21 21:38 Ketorolac 30 Mg/Ml Sdv IVPUSH 07/04/21 21:24 30 mg ONETIME ONE Administration Ondansetron HCl 4 mg 07/04/21 21:23 07/04/21 21:39 Ondansetron 4 Mg/2 Ml Sdv IVPUSH 07/04/21 21:24 4 mg ONETIME ONE Administration - Re-Assessments/Exams Free Text/Narrative Re-Assessment/Exam: 07/05/21 02:01. Has had good relief from IV meds. renal CT shows some dilitation of the R ureter but no visualized stone. It could be a noncalcified stone or maybe she has already passed a stone. She feels safe to drive home now, ambulated to and from bathroom without difficulty. Last dose of dilaudid was several hrs ago. Free Text/Narrative Re-Assessment/Exam: 07/04/21 23:46 Have assumed care from Molly Pederson following change of shift. I agree with her hx and exam as documented. CT report is now back, shows very mild dilitation of the R ureter adn renal collecting system with no definite stone visualized. See Radiology report for details. Her sx very strongly suggestive for R sided stone. Ua does does not show infection. She feels comfortable now with 2 doses of dilaudid. 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 Will watch her here in the ED until the dilaudid wears off. Discharge instr. as documented. Departure - Departure Time of Disposition: 02:10 Condition: Fair Sepsis Event Note (ED) - Focused Exam Vital Signs: Vital Signs Temp Pulse Resp BP Pulse Ox 07/04/21 21:17 98.0 F 96 20 139/83 97
--- NOTE | 2021-07-05 06:56 | CT ---
CT abdomen and pelvis Technique: Multiple axial sections were obtained from above the dome of the diaphragm inferiorly through the pubic symphysis. Intravenous and oral contrast were not utilized. Study has been performed as a ureteral stone protocol. Reconstructed coronal and sagittal images were obtained. Comparison: Prior CT abdomen and pelvis study of 07/10/18. Findings: Visualized lung bases show nothing acute. Kidneys show no hydronephrosis. Small nonobstructing 2 mm stone is noted within the lower left kidney. Small left-sided adrenal nodule is noted which is felt to be stable from prior exam and measures 9 mm which is most likely benign. No ureteral dilatation or ureteral stone is seen. No bladder calculi are seen. Noncontrast liver shows no focal abnormality. Spleen size is normal. Pancreas shows no discrete abnormality. Gallbladder contains no calcified gallstones. Abdominal aorta shows atherosclerotic calcification with no aneurysm. No retroperitoneal adenopathy or mesenteric abnormalities are seen. Appendix is seen which is normal in size. No pelvic mass or adenopathy is seen. Prior hysterectomy is noted. Bone window settings were reviewed which show mild scattered degenerative change within the spine, most severe at L4-5. Impression: 1. No ureteral dilatation or ureteral stone is seen. Small nonobstructing calculus measuring 2 mm is seen within the lower left kidney. 2. Small stable nodule within the left adrenal gland compatible with benign etiology. 3. Degenerative change within the spine as noted above. Diagnostic code #2 I agree with preliminary report from [facility], finalized on 07/05/21, 12:20 AM CDT, code 1
== END 2021-07-05 02:06 | disposition home or self-care (01) ==
LOC: JD.ED 20:44
DX: N20.0 Calculus of kidney (principal); E78.00 Pure hypercholesterolemia, unspecified; Z79.899 Other long term (current) drug therapy; Z88.5 Allergy status to narcotic agent; Z72.0 Tobacco use
CPT/HCPCS: 36415; 74176; 80053; 81001; 85025; 86140; 96374; 96375; 96376; 99284; J1170; J1885; J2405; J7030

== ENCOUNTER 2022-01-07 20:14 | Emergency (ER) | payer BC, OTHER ==
[2022-01-07] MEDS ORDERED: HYDROmorphone 0.5 MG/0.5 ML Syringe IVPUSH ONE (21:23)
[2022-01-07] MEDS ORDERED: Magnesium Citrate Solution 296 ML Bottle PO ONE (23:28)
== END 2022-01-07 23:50 | disposition home or self-care (01) ==
LOC: JD.ED 20:14
DX: K59.01 Slow transit constipation (principal); E78.00 Pure hypercholesterolemia, unspecified; Z79.899 Other long term (current) drug therapy; Z88.5 Allergy status to narcotic agent; Z72.0 Tobacco use
CPT/HCPCS: 74019; 96374; 99284; A9270; J1170; 99283

== ENCOUNTER 2022-03-16 11:55 | Emergency (ER) | payer BC, OTHER ==
[2022-03-16] MEDS ORDERED: HYDROmorphone 0.5 MG/0.5 ML Syringe IVPUSH ONE (12:29)
[2022-03-16] MEDS ORDERED: Sodium Chloride 0.9% 10 ML Syringe FLUSH PRN ×2 (12:29→14:21)
[2022-03-16] MEDS ORDERED: Ondansetron 4 MG/2 ML SDV IVPUSH ONE (12:29)
[2022-03-16] MEDS ORDERED: Sodium Chloride 0.9% 1,000 ML IV SCH (12:30)
[2022-03-16 14:11] LABS: ESTIMATED GFR > 60 mL/min (>60)
[2022-03-16] MEDS ORDERED: Ketorolac 30 MG/ML SDV IVPUSH ONE (14:20)
[2022-03-16] MEDS ORDERED: Iopamidol 755 Mg/ML 100 ML Bottle IVPUSH ONE (14:21)
[2022-03-16] MEDS ORDERED: Sodium Chloride 0.9% 45 ML IV SCH (14:30)
== END 2022-03-16 15:54 | disposition home or self-care (01) ==
LOC: JD.ED 11:55
DX: S22.42XA Multiple fractures of ribs, left side, initial encounter for closed fracture (principal); E78.00 Pure hypercholesterolemia, unspecified; Z90.710 Acquired absence of both cervix and uterus; Z79.899 Other long term (current) drug therapy; Z88.5 Allergy status to narcotic agent; W01.198A Fall on same level from slipping, tripping and stumbling with subsequent striking against other object, initial encounter
CPT/HCPCS: 36415; 71101; 71275; 80053; 83735; 84484; 85025; 85379; 86140; 93005; 96374; 96375; 99284; J1170; J1885; J2405; J3490; J7030; Q9967; 93010

== ENCOUNTER 2022-11-09 13:08 | Day surgery (SDC) | payer BC ==
[2022-11-09] MEDS ORDERED: HYDROmorphone 1 MG/ML Syringe IVPUSH STA (13:46)
[2022-11-09] MEDS ORDERED: Ondansetron 4 MG/2 ML SDV IVPUSH ONE (13:46)
[2022-11-09] MEDS ORDERED: Sodium Chloride 0.9% 1,000 ML IV SCH ×2 (14:00→16:30)
[2022-11-09] MEDS ORDERED: HYDROmorphone 0.5 MG/0.5 ML Syringe IVPUSH ONE (16:04)
[2022-11-09] MEDS ORDERED: Piperacillin/Tazobactam 4.5 GM in Sodium Chloride 0.9% 100 ML IV ONE (17:36)
[2022-11-09] MEDS ORDERED: Ondansetron 4 MG/2 ML SDV ONE (18:26)
[2022-11-09] MEDS ORDERED: Propofol 200 MG/20 ML SDV ONE (18:26)
[2022-11-09] MEDS ORDERED: Rocuronium 50 MG/5 ML Vial ONE (18:26)
[2022-11-09] MEDS ORDERED: Midazolam 1 MG/ML 2 ML SDV ONE (18:26)
[2022-11-09] MEDS ORDERED: fentaNYL 100 MCG/2 ML SDV ONE (18:27)
[2022-11-09] MEDS ORDERED: Lidocaine 1% 5 ML VIAL ONE (18:27)
[2022-11-09] MEDS ORDERED: Lidocaine 1% 50 ML MDV ONE (18:48)
[2022-11-09] MEDS ORDERED: Bupivacaine 0.5%/EPINEPHrine 1:200,000 50 ML MDV ONE (18:48)
[2022-11-09] MEDS ORDERED: Dexamethasone 4 MG/ML 5 ML MDV ONE (18:50)
[2022-11-09] MEDS ORDERED: Phenylephrine HCl In 0.9% NaCl 1 MG/10 ML Vial ONE (19:19)
[2022-11-09] MEDS ORDERED: Neostigmine Methylsulfate 10 MG/10 ML MDV ONE (19:37)
[2022-11-09] MEDS ORDERED: Ketorolac 30 MG/ML SDV ONE (19:45)
[2022-11-09] MEDS ORDERED: Lactated Ringers 1,000 ML ONE (19:48)
[2022-11-09] MEDS ORDERED: Ondansetron 4 MG/2 ML SDV IVPUSH PRN (20:07)
[2022-11-09] MEDS ORDERED: fentaNYL 100 MCG/2 ML SDV IVPUSH PRN (20:07)
[2022-11-09] MEDS ORDERED: HYDROmorphone 0.5 MG/0.5 ML Syringe IVPUSH PRN (20:07)
[2022-11-09] MEDS ORDERED: oxyCODONE 5 MG Tab PO ONE (20:21)
== END 2022-11-09 21:46 | disposition home or self-care (01) ==
LOC: JD.ED 13:08 → JD.SDS 18:15
PROVIDERS: ATTEND Surgery
DX: K35.80 Unspecified acute appendicitis (principal); E78.00 Pure hypercholesterolemia, unspecified; F32.A Depression, unspecified; F17.210 Nicotine dependence, cigarettes, uncomplicated; Z88.5 Allergy status to narcotic agent; Z86.16 Personal history of COVID-19; Z79.899 Other long term (current) drug therapy; Z98.890 Other specified postprocedural states
CPT/HCPCS: 36415; 44970; 74176; 80053; 81001; 83690; 85025; 88304; J1100; J1170; J1885; J2001; J2250; J2405; J2543; J2704; J2710; J3010; J3490; J7030; J7120; 00840; 99284